=== PATIENT | female | born 1985 | race African-American/Black ===

== ENCOUNTER 2018-08-25 12:44 | Outpatient (CLI) | payer BC, OTHER | END 2018-08-25 12:45 | disposition home or self-care (01) | PROVIDERS: ATTEND Family Medicine | DX: R00.2 Palpitations (principal) | CPT/HCPCS: 93225; 93226 ==

== ENCOUNTER 2021-04-21 14:32 | Outpatient (CLI) | payer BC, OTHER ==
[~2021-04-21 14:32] MED LIST: Iopamidol 370 76% 100 ML VIAL ONE
== END 2021-04-21 14:33 | disposition home or self-care (01) ==
LOC: BICCT 14:32
PROVIDERS: ATTEND Family Medicine
DX: R31.29 Other microscopic hematuria (principal); K57.30 Diverticulosis of large intestine without perforation or abscess without bleeding; K42.9 Umbilical hernia without obstruction or gangrene
CPT/HCPCS: 74178; Q9967

== ENCOUNTER 2022-02-26 00:30 | Emergency (ER) | payer BC | END 2022-02-26 06:23 | disposition home or self-care (01) | LOC: ERS 00:30 | DX: H53.9 Unspecified visual disturbance (principal); R51.9 Headache, unspecified; R20.2 Paresthesia of skin; I10 Essential (primary) hypertension; J45.909 Unspecified asthma, uncomplicated; Z79.899 Other long term (current) drug therapy | CPT/HCPCS: 70450 ==

== ENCOUNTER 2022-06-06 13:33 | Outpatient (CLI) | payer BC ==
[~2022-06-06 13:33] MED LIST changes: -Iopamidol 370 76% 100 ML VIAL ONE; +Magnevist 469MG/ML 20 ML VIAL ONE
== END 2022-06-06 13:34 | disposition home or self-care (01) ==
LOC: TBSIIMAG 13:33
PROVIDERS: ATTEND Psychiatry & Neurology Neurology
DX: G44.89 Other headache syndrome (principal); R90.89 Other abnormal findings on diagnostic imaging of central nervous system
CPT/HCPCS: 70553